=== PATIENT | male | born 1965 | race Caucasian/White ===

== ENCOUNTER 2018-06-24 21:33 | Emergency (ER) | payer BC ==
[2018-06-24 21:52] VITALS: BP 151/99
--- NOTE | 2018-06-24 21:52 | UC ---
Skin Complaint HPI - HPI Summary HPI Summary: The patient is a 53-year-old male that presents here for evaluation of a pruritic rash. The rash started on his trunk and has since spread to his extremities. The rash response to Benadryl. Her rash gets worse with heat. He noticed it became markedly worse after taking a warm shower. He denies any new medications. He denies any URI symptoms. He has no oral lesions. He denies any diarrhea. He has been on Lamictal for a number of years and his dose has not recently been changed. - History of Current Complaint Time Seen by Provider: 06/24/18 21:46 Stated Complaint: SKIN CONCERN Hx Obtained From: Patient Onset/Duration: Gradual Onset, Lasting Days Timing: Constant Onset Severity: Mild Current Severity: Mild Pain Scale Used: 0-10 Numeric Location: Diffuse Character: Pruritus, Redness, Raised Aggravating Factor(s): Showering Alleviating Factor(s): Nothing Associated Signs & Symptoms: Positive: Rash - Allergy/Home Medications Allergies/Adverse Reactions: Allergies Allergy/AdvReac Type Severity Reaction Status Date / Time No Known Allergies Allergy Verified 06/24/18 21:52 Home Medications: Home Medications diPHENhydraMINE PO* [Benadryl PO 50 MG CAP*] 50 mg PO ONCE 06/24/18 [History Confirmed 06/24/18] Review of Systems Constitutional: Negative Skin: Rash Eyes: Negative ENT: Negative Respiratory: Negative Cardiovascular: Negative Gastrointestinal: Negative Genitourinary: Negative Motor: Negative Neurovascular: Negative Musculoskeletal: Negative Neurological: Negative Psychological: Negative Is Patient Immunocompromised?: No All Other Systems Reviewed And Are Negative: Yes PMH/Surg Hx/FS Hx/Imm Hx Previously Healthy: Yes - Surgical History Surgical History: Yes Surgery Procedure, Year, and Place: hernia surgery 15yrs ago, testicular bx & removal 15 years - Family History Known Family History: Positive: Hypertension - Social History Alcohol Use: Rare Substance Use Type: None Smoking Status (MU): Never Smoked Tobacco Physical Exam Triage Information Reviewed: Yes Appearance: Well-Appearing, No Pain Distress, Well-Nourished Vital Signs Reviewed: Yes Eyes: Positive: Conjunctiva Clear ENT: Positive: Hearing grossly normal. Negative: Nasal congestion, Nasal drainage, Trismus, Muffled voice, Hoarse voice, Sinus tenderness Neck: Positive: Supple, Nontender, No Lymphadenopathy Respiratory: Positive: Lungs clear, Normal breath sounds, No respiratory distress, No accessory muscle use Cardiovascular: Positive: RRR, No Murmur Musculoskeletal: Positive: ROM Intact, No Edema Neurological: Positive: Alert Psychological Exam: Normal Skin Exam: Other - fine red rash with some wheals , + dermatographia Course/Dx - Diagnoses Provider Diagnoses: urticarial rash of uncertain cause Discharge - Sign-Out/Discharge Documenting (check all that apply): Patient Departure All imaging exams completed and their final reports reviewed: No Studies - Discharge Plan Condition: Stable Disposition: HOME Prescriptions: predniSONE [Deltasone 20 MG TAB] 40 mg PO DAILY #10 tab Patient Education Materials: Urticaria (ED) Referrals: Kathy Quinonez MD [Primary Care Provider] - If Needed Additional Instructions: I suggest you call you MD in AM to see if you should continue your Lamictal benadryl for itching recheck for worsening symptoms - Billing Disposition and Condition Condition: STABLE Disposition: Home
[2018-06-24] MEDS ORDERED: predniSONE TAB* 20 MG PO ONE (22:04)
== END 2018-06-24 22:08 | disposition home or self-care (01) ==
LOC: UCCORT 21:33
DX: L50.3 Dermatographic urticaria (principal)
CPT/HCPCS: 99212; G0463; J7512